=== PATIENT | female | born 1965 | race Caucasian/White ===

== ENCOUNTER → 2016-09-05 | Outpatient (CLI) | payer OTHER ==
[~2016-09-05] MED LIST: CALC-823 PO; MULT-974 PO; OMG1KC PO
[2016-09-05 08:15] LABS: BASOPHILS % (AUTO) 0 % (0-10); EOSINOPHILS # (AUTO) 0.2 10^3/uL (0.0-0.3); EOSINOPHILS % (AUTO) 3 % (0-10); LYMPHOCYTES # (AUTO) 1.9 X 10^3 (1.0-4.0); LYMPHOCYTES % (AUTO) 31 % (12-44); MEAN CORPUSCULAR HEMOGLOBIN 29 PG (25-34); MEAN CORPUSCULAR HGB CONC 33 G/DL (32-36); MEAN CORPUSCULAR VOLUME 89 FL (80-99); MEAN PLATELET VOLUME 9.7 FL (7.4-10.4); MONOCYTES # (AUTO) 0.4 X 10^3 (0.0-1.0); MONOCYTES % (AUTO) 7 % (0-12); NEUTROPHILS # (AUTO) 3.5 X 10^3 (1.8-7.8); NEUTROPHILS % (AUTO) 58 % (42-75); PLATELET COUNT 277 10^3/uL (130-400); RED BLOOD COUNT 4.34 10^6/uL (4.35-5.85); RED CELL DISTRIBUTION WIDTH 13.2 % (10.0-14.5)
[2016-09-05 08:38] LABS: ALANINE AMINOTRANSFERASE 38 U/L (0-55); ALBUMIN 4.3 G/DL (3.2-4.5); ANION GAP 10 MMOL/L (5-14); ASPARTATE AMINO TRANSFERASE 28 U/L (5-34); BILIRUBIN,TOTAL 0.6 MG/DL (0.1-1.0); BLOOD UREA NITROGEN 15 MG/DL (7-18); BUN/CREATININE RATIO 18; CALCIUM 9.2 MG/DL (8.5-10.1); CARBON DIOXIDE 24 MMOL/L (21-32); CHLORIDE 105 MMOL/L (98-107); CHOLESTEROL 250 MG/DL (< 200); CREATININE SERUM 0.82 MG/DL (0.60-1.30); DIRECT LDL 183 MG/DL (1-129); GFR ESTIMATED > 60; GLUCOSE 95 MG/DL (70-105); POTASSIUM 4.5 MMOL/L (3.6-5.0); SODIUM 139 MMOL/L (135-145); TOTAL PROTEIN 6.7 G/DL (6.4-8.2); TRIGLYCERIDES 160 MG/DL (<150); VLDL CHOLESTEROL 32 MG/DL (5-40)
[2016-09-05 08:58] LABS: THYROID STIMULATING HORMONE 1.26 UIU/ML (0.35-4.94)
== END ==
LOC: LAB 07:58
PROVIDERS: ATTEND Obstetrics & Gynecology
DX: Z00.00 Encounter for general adult medical examination without abnormal findings (principal); Z13.220 Encounter for screening for lipoid disorders; Z13.1 Encounter for screening for diabetes mellitus
CPT/HCPCS: 36415; 80053; 80061; 83036; 84443; 85025

== ENCOUNTER → 2017-02-10 | Outpatient (CLI) | payer OTHER ==
--- NOTE | 2017-02-12 10:06 | Diagnostic Imaging Report ---
Bilateral screening mammogram 2D views with tomosynthesis The current study was also evaluated with a Computer Aided Detection (CAD) system. Indication: Screening. No current complaints stated on the questionnaire. COMPARISON: 09/06/15 and other prior exams. FINDINGS: The breasts are composed of heterogeneously dense parenchyma which may decrease mammographic sensitivity. Benign-appearing calcifications seen. Allowing for technique and positional differences, no suspicious change is seen. IMPRESSION: No significant change. ACR BI-RADS Category 2: Benign findings. Result letter will be mailed to the patient. Note: At least 10% of breast cancer is not imaged by mammography. Dictated by: Dictated on workstation # [id number]
== END ==
LOC: RAD 15:35
PROVIDERS: ATTEND Obstetrics & Gynecology
DX: Z12.31 Encounter for screening mammogram for malignant neoplasm of breast (principal)
CPT/HCPCS: 77067

== ENCOUNTER → 2017-08-12 | Outpatient (CLI) | payer OTHER | LOC: CARD 07:22 | PROVIDERS: ATTEND Internal Medicine Cardiovascular Disease | DX: E78.5 Hyperlipidemia, unspecified (principal); E66.9 Obesity, unspecified; Z82.3 Family history of stroke; Z82.49 Family history of ischemic heart disease and other diseases of the circulatory system | CPT/HCPCS: 93017; 93306 ==

== ENCOUNTER → 2017-09-23 | Outpatient (CLI) | payer OTHER ==
[2017-09-23 08:34] LABS: BASOPHILS % (AUTO) 0 % (0-10); EOSINOPHILS # (AUTO) 0.1 10^3/uL (0.0-0.3); EOSINOPHILS % (AUTO) 3 % (0-10); HEMATOCRIT 39 % (35-52); HEMOGLOBIN 13.2 G/DL (11.5-16.0); LYMPHOCYTES # (AUTO) 1.9 X 10^3 (1.0-4.0); LYMPHOCYTES % (AUTO) 36 % (12-44); MEAN CORPUSCULAR HEMOGLOBIN 30 PG (25-34); MEAN CORPUSCULAR HGB CONC 34 G/DL (32-36); MEAN CORPUSCULAR VOLUME 89 FL (80-99); MEAN PLATELET VOLUME 9.9 FL (7.4-10.4); MONOCYTES # (AUTO) 0.4 X 10^3 (0.0-1.0); MONOCYTES % (AUTO) 7 % (0-12); NEUTROPHILS % (AUTO) 55 % (42-75); PLATELET COUNT 248 10^3/uL (130-400); RED BLOOD COUNT 4.41 10^6/uL (4.35-5.85); RED CELL DISTRIBUTION WIDTH 12.8 % (10.0-14.5); WHITE BLOOD COUNT 5.5 10^3/uL (4.3-11.0)
[2017-09-23 08:48] LABS: ALANINE AMINOTRANSFERASE 33 U/L (0-55); ALBUMIN 4.3 GM/DL (3.2-4.5); ALKALINE PHOSPHATASE 114 U/L (40-136); BILIRUBIN,TOTAL 0.8 MG/DL (0.1-1.0); BUN/CREATININE RATIO 27; CALCIUM 9.4 MG/DL (8.5-10.1); CARBON DIOXIDE 24 MMOL/L (21-32); CHLORIDE 105 MMOL/L (98-107); CHOLESTEROL 256 MG/DL (< 200); CREATININE SERUM 0.81 MG/DL (0.60-1.30); GFR ESTIMATED > 60; GLUCOSE 101 MG/DL (70-105); HDL CHOLESTEROL 55 MG/DL (40-60); POTASSIUM 4.1 MMOL/L (3.6-5.0); SODIUM 141 MMOL/L (135-145); TOTAL PROTEIN 7.2 GM/DL (6.4-8.2); TRIGLYCERIDES 131 MG/DL (<150); VLDL CHOLESTEROL 26 MG/DL (5-40)
== END ==
LOC: LAB 08:09
PROVIDERS: ATTEND Obstetrics & Gynecology
DX: Z00.00 Encounter for general adult medical examination without abnormal findings (principal); Z13.1 Encounter for screening for diabetes mellitus; Z13.220 Encounter for screening for lipoid disorders
CPT/HCPCS: 36415; 80053; 80061; 83036; 84443; 85025

== ENCOUNTER → 2018-02-17 | Outpatient (CLI) | payer OTHER ==
--- NOTE | 2018-02-17 11:32 | Diagnostic Imaging Report ---
Indication: Routine screening. Comparison is made to prior exam from 02/10/2017 and 09/06/2015. 2-D and 3-D bilateral screening mammography was performed with CAD. Scattered fibroglandular densities are identified bilaterally. The parenchymal pattern appears stable. No dominant mass or malignant-appearing microcalcifications are seen. The axillae are unremarkable. Impression: BI-RADS category 1 No mammographic features suspicious for malignancy are identified. ACR BI-RADS Category 1: Negative. Result letter will be mailed to the patient. Note: At least 10% of breast cancer is not imaged by mammography. Dictated by: Dictated on workstation # [id number]
== END ==
LOC: SDC 08:56
PROVIDERS: ATTEND Obstetrics & Gynecology
DX: Z12.31 Encounter for screening mammogram for malignant neoplasm of breast (principal)
CPT/HCPCS: 77067

== ENCOUNTER → 2018-11-18 | Outpatient (CLI) | payer OTHER ==
[2018-11-18 07:45] LABS: BASOPHILS % (AUTO) 0 % (0-10); EOSINOPHILS # (AUTO) 0.2 10^3/uL (0.0-0.3); EOSINOPHILS % (AUTO) 3 % (0-10); HEMATOCRIT 37 % (35-52); HEMOGLOBIN 12.4 G/DL (11.5-16.0); LYMPHOCYTES # (AUTO) 1.9 X 10^3 (1.0-4.0); LYMPHOCYTES % (AUTO) 37 % (12-44); MEAN CORPUSCULAR HEMOGLOBIN 30 PG (25-34); MEAN CORPUSCULAR HGB CONC 33 G/DL (32-36); MEAN CORPUSCULAR VOLUME 89 FL (80-99); MEAN PLATELET VOLUME 9.9 FL (7.4-10.4); MONOCYTES # (AUTO) 0.4 X 10^3 (0.0-1.0); MONOCYTES % (AUTO) 8 % (0-12); NEUTROPHILS # (AUTO) 2.8 X 10^3 (1.8-7.8); NEUTROPHILS % (AUTO) 53 % (42-75); PLATELET COUNT 223 10^3/uL (130-400); RED CELL DISTRIBUTION WIDTH 12.6 % (10.0-14.5); WHITE BLOOD COUNT 5.2 10^3/uL (4.3-11.0)
[2018-11-18 08:03] LABS: ALANINE AMINOTRANSFERASE 25 U/L (0-55); ALBUMIN 4.4 GM/DL (3.2-4.5); ALKALINE PHOSPHATASE 100 U/L (40-136); BILIRUBIN,TOTAL 0.6 MG/DL (0.1-1.0); BUN/CREATININE RATIO 30; CALCIUM 9.6 MG/DL (8.5-10.1); CARBON DIOXIDE 23 MMOL/L (21-32); CHLORIDE 107 MMOL/L (98-107); CHOLESTEROL 237 MG/DL (< 200); CREATININE SERUM 0.79 MG/DL (0.60-1.30); GFR ESTIMATED > 60; GLUCOSE 98 MG/DL (70-105); HDL CHOLESTEROL 50 MG/DL (40-60); POTASSIUM 4.1 MMOL/L (3.6-5.0); SODIUM 141 MMOL/L (135-145); TOTAL PROTEIN 6.9 GM/DL (6.4-8.2); TRIGLYCERIDES 124 MG/DL (<150); VLDL CHOLESTEROL 25 MG/DL (5-40)
== END ==
LOC: LAB 07:32
PROVIDERS: ATTEND Obstetrics & Gynecology
DX: Z00.00 Encounter for general adult medical examination without abnormal findings (principal); Z13.220 Encounter for screening for lipoid disorders; Z13.1 Encounter for screening for diabetes mellitus
CPT/HCPCS: 36415; 80053; 80061; 83036; 84443; 85025

== ENCOUNTER → 2019-02-22 | Outpatient (CLI) | payer OTHER ==
--- NOTE | 2019-02-23 18:26 | Diagnostic Imaging Report ---
EXAMINATION: Digital mammogram bilateral screening. The current study was also evaluated with a Computer Aided Detection (CAD) system. 3-D tomosynthesis was also performed and reviewed. INDICATION: Screening. This study was compared to the prior exams of 02/17/2018, 02/10/2017, and 09/06/2015. At this time, there are no current complaints. FINDINGS: The fibroglandular tissue in both breasts is heterogeneously dense. This does limit the sensitivity of this exam. Overall, there does not appear to have been any significant change when compared to the prior study. No primary or secondary sign of malignancy is noted. 3D tomographic images fail to show any sign of malignancy. IMPRESSION: There is no radiographic evidence for malignancy. ACR BI-RADS Category 1: Negative. Result letter will be mailed to the patient. Note: At least 10% of breast cancer is not imaged by mammography. Dictated by: Dictated on workstation # [id number]
== END ==
LOC: RAD 14:45
PROVIDERS: ATTEND Obstetrics & Gynecology
DX: Z12.31 Encounter for screening mammogram for malignant neoplasm of breast (principal)
CPT/HCPCS: 77067

== ENCOUNTER → 2019-02-22 | Outpatient (CLI) | payer OTHER ==
--- NOTE | 2019-02-23 10:27 | Diagnostic Imaging Report ---
CT low-dose lung cancer screening. Indication: [id number] smoking history. Routine images of the thorax were obtained using the CT low-dose lung cancer lobe screening protocol. There is a 1.1 cm parenchymal opacity in the right upper lobe (image 85 of 183). This finding is also seen on the coronal (image 34 of 124) and sagittal reconstructed images (image 74 of 302). This lesion has a flat appearance. In reviewing the previous CT chest exam of 08/27/2016, this finding was present and does not seem to have changed significantly. Consequently I do suspect it is a benign process. There is no other parenchymal lung mass identified other than a calcified granuloma in the left apex. This finding was also present in the prior exam. There is no sign of failure, pneumonia or pleural effusion to indicate an acute abnormality. The heart size is at the upper limits of normal. There are coronary artery calcifications evident. Aorta is not abnormally dilated. There is no obvious mediastinal or hilar adenopathy. Thyroid gland is generally unremarkable. There is no breast mass noted. The upper abdomen where visualized is unremarkable for an acute abnormality. The bone window shows no sign of a fracture or destructive lesion. Impression: 1. The flat parenchymal density in the right midlung anteriorly is seen on the previous exam, appears similar to the prior study and consequently is most likely benign. A followup low dose lung cancer screening exam in one year would be recommended for continued evaluation. 2. There is no acute cardiopulmonary abnormality noted. 3. There is coronary artery disease. Lung-Rads Category: 2 Dictated by: Dictated on workstation # [id number]
== END ==
LOC: RAD 14:48
PROVIDERS: ATTEND Family Medicine
DX: Z12.2 Encounter for screening for malignant neoplasm of respiratory organs (principal); I25.10 Atherosclerotic heart disease of native coronary artery without angina pectoris; J98.4 Other disorders of lung; Z87.891 Personal history of nicotine dependence

== ENCOUNTER → 2019-05-26 | Outpatient (CLI) | payer OTHER ==
[2019-05-26 07:45] LABS: ALBUMIN 4.3 GM/DL (3.2-4.5); BILIRUBIN,DIRECT 0.2 MG/DL (0.0-0.3); BILIRUBIN,INDIRECT 0.4 MG/DL; BILIRUBIN,TOTAL 0.6 MG/DL (0.1-1.0); TOTAL PROTEIN 7.1 GM/DL (6.4-8.2)
== END ==
LOC: LAB 07:09
PROVIDERS: ATTEND Physician Assistant
DX: E78.5 Hyperlipidemia, unspecified (principal); E66.9 Obesity, unspecified; Z87.891 Personal history of nicotine dependence; Z82.49 Family history of ischemic heart disease and other diseases of the circulatory system; Z80.9 Family history of malignant neoplasm, unspecified
CPT/HCPCS: 36415; 80061; 80076

== ENCOUNTER → 2019-12-29 | Outpatient (CLI) | payer OTHER ==
[2019-12-29 07:26] LABS: BASOPHILS % (AUTO) 0 % (0-10); EOSINOPHILS # (AUTO) 0.2 10^3/uL (0.0-0.3); EOSINOPHILS % (AUTO) 3 % (0-10); HEMATOCRIT 38 % (35-52); HEMOGLOBIN 12.5 G/DL (11.5-16.0); LYMPHOCYTES # (AUTO) 1.9 X 10^3 (1.0-4.0); LYMPHOCYTES % (AUTO) 34 % (12-44); MEAN CORPUSCULAR HEMOGLOBIN 29 PG (25-34); MEAN CORPUSCULAR HGB CONC 33 G/DL (32-36); MEAN CORPUSCULAR VOLUME 89 FL (80-99); MEAN PLATELET VOLUME 9.5 FL (7.4-10.4); MONOCYTES # (AUTO) 0.4 X 10^3 (0.0-1.0); MONOCYTES % (AUTO) 7 % (0-12); NEUTROPHILS # (AUTO) 3.1 X 10^3 (1.8-7.8); NEUTROPHILS % (AUTO) 56 % (42-75); PLATELET COUNT 216 10^3/uL (130-400); WHITE BLOOD COUNT 5.6 10^3/uL (4.3-11.0)
[2019-12-29 07:31] LABS: ALBUMIN 4.4 GM/DL (3.2-4.5)
[2019-12-29 07:33] LABS: CALCIUM 9.7 MG/DL (8.5-10.1)
[2019-12-29 07:34] LABS: TOTAL PROTEIN 7.2 GM/DL (6.4-8.2)
[2019-12-29 07:36] LABS: BILIRUBIN,TOTAL 0.7 MG/DL (0.1-1.0)
[2019-12-29 07:38] LABS: CREATININE SERUM 0.97 MG/DL (0.60-1.30)
== END ==
LOC: LAB 07:10
PROVIDERS: ATTEND Obstetrics & Gynecology
DX: Z13.1 Encounter for screening for diabetes mellitus (principal); Z13.220 Encounter for screening for lipoid disorders
CPT/HCPCS: 36415; 80053; 80061; 83036; 84443; 85025

== ENCOUNTER → 2020-03-01 | Outpatient (CLI) | payer OTHER ==
--- NOTE | 2020-03-01 13:43 | Diagnostic Imaging Report ---
CT Lung Screening INDICATION: 35 pack-year smoking history. TECHNIQUE: Noncontrast, low-dose CT imaging performed according to the lung cancer screening protocol. Auto Exposure Controls were utilize during the CT exam to meet ALARA standards for radiation dose reduction. COMPARISON: 02/22/2019. FINDINGS: The previous CT low-dose lung cancer screening exam of 02/22/2019 noted a 1.1 cm parenchymal opacity in the right upper lobe. That finding is again evident on this study and does not appear to have changed significantly in size or appearance. The densely calcified granuloma in the left upper lung noted previously is also again evident and no different. There is no other parenchymal lung mass noted. There are mild chronic pulmonary changes evident. There is no sign of failure, pneumonia, or pleural effusion to indicate an acute abnormality. The heart size is within normal limits. Coronary artery calcifications are evident. The aorta is not abnormally dilated. There is no mediastinal or hilar adenopathy. The thyroid gland where visualized is unremarkable. There is no obvious breast mass. The sections through the upper abdomen fail to show any sign of an acute abnormality. The gallbladder is surgically absent. The bone windows are unremarkable for a fracture or for a destructive lesion. IMPRESSION: 1. The parenchymal opacity in the right upper lobe seen previously is again evident and appears stable. Most likely, this is a benign process. A follow-up low-dose lung cancer screening exam in one year will be recommended for continued evaluation. 2. There is no other parenchymal lung mass noted. 3. There is no sign of an acute cardiopulmonary abnormality. 4. There is coronary artery disease. LUNG-RADS CATEGORY: 2 MODIFIER: OTHER SIGNIFICANT FINDINGS: Dictated by: Dictated on workstation # [id number]
== END ==
LOC: RAD 07:18
PROVIDERS: ATTEND Family Medicine
DX: Z12.11 Encounter for screening for malignant neoplasm of colon (principal); R91.8 Other nonspecific abnormal finding of lung field; Z87.891 Personal history of nicotine dependence

== ENCOUNTER → 2020-03-01 | Outpatient (CLI) | payer OTHER ==
--- NOTE | 2020-03-01 19:27 | Diagnostic Imaging Report ---
INDICATION: Screening. At this time there are no current complaints. EXAMINATION: Bilateral digital screening mammogram with CAD. 3D tomographic images were obtained and reviewed. The current study was also evaluated with a Computer Aided Detection (CAD) system. COMPARISON: This study was compared to the prior exams of 02/22/2019, 02/17/2018 and 02/10/2017. FINDINGS: The fibroglandular tissue in both breasts is heterogeneously dense. This does limit the sensitivity of this exam. Overall, there does not appear to have been any significant change when compared to the prior study. No primary or secondary sign of malignancy is noted. IMPRESSION: There is no radiographic evidence for malignancy. ACR BI-RADS Category 1: Negative. Result letter will be mailed to the patient. Note: At least 10% of breast cancer is not imaged by mammography. Dictated by: Dictated on workstation # [id number]
== END ==
LOC: RAD 07:17
PROVIDERS: ATTEND Obstetrics & Gynecology
DX: Z12.31 Encounter for screening mammogram for malignant neoplasm of breast (principal)
CPT/HCPCS: 77063; 77067

== ENCOUNTER → 2021-03-13 | Outpatient (CLI) | payer OTHER ==
--- NOTE | 2021-03-13 13:36 | Diagnostic Imaging Report ---
INDICATION: Routine screening. COMPARISON: 03/01/2020 and 02/22/2019. TECHNIQUE: 2D and 3D bilateral screening mammography was performed with CAD. FINDINGS: Scattered fibroglandular densities are identified bilaterally. The intraparenchymal lymph node in the outer right breast is stable. There is an intraparenchymal lymph node in the outer left breast as well at mid depth. No spiculated mass or malignant-appearing microcalcifications are seen. The axillae are unremarkable. IMPRESSION: No mammographic features suspicious for malignancy are identified. ACR BI-RADS Category 2: Benign findings. Result letter will be mailed to the patient. Note: At least 10% of breast cancer is not imaged by mammography. Dictated by: Dictated on workstation # [id number]
== END ==
LOC: RAD 11:15
PROVIDERS: ATTEND Obstetrics & Gynecology
DX: Z12.31 Encounter for screening mammogram for malignant neoplasm of breast (principal)
CPT/HCPCS: 77063; 77067

== ENCOUNTER → 2021-03-21 | Outpatient (CLI) | payer OTHER ==
[2021-03-21 07:52] LABS: ALBUMIN 4.4 GM/DL (3.2-4.5); BILIRUBIN,TOTAL 0.7 MG/DL (0.1-1.0); CALCIUM 9.9 MG/DL (8.5-10.1); CREATININE SERUM 0.83 MG/DL (0.60-1.30); POTASSIUM 4.1 MMOL/L (3.6-5.0); TOTAL PROTEIN 7.4 GM/DL (6.4-8.2)
[2021-03-21 08:14] LABS: FREE T4 (FREE THYROXINE) 0.96 NG/DL (0.70-1.48)
== END ==
LOC: LAB 07:08
PROVIDERS: ATTEND Obstetrics & Gynecology
DX: Z00.00 Encounter for general adult medical examination without abnormal findings (principal); Z13.220 Encounter for screening for lipoid disorders; Z13.1 Encounter for screening for diabetes mellitus
CPT/HCPCS: 36415; 80053; 80061; 83036; 84439; 84443; 85025

== ENCOUNTER → 2021-03-21 | Outpatient (CLI) | payer OTHER | LOC: LAB 07:08 | PROVIDERS: ATTEND Obstetrics & Gynecology | DX: Z53.9 Procedure and treatment not carried out, unspecified reason (principal) ==

== ENCOUNTER → 2021-03-26 | Outpatient (CLI) | payer OTHER ==
--- NOTE | 2021-03-26 09:36 | Diagnostic Imaging Report ---
CT Lung Screening INDICATION:35 pack year smoking history, cessation 8 years ago, for annual low-dose CT screening TECHNIQUE: Noncontrast, low-dose CT imaging performed according to the lung cancer screening protocol. Auto Exposure Controls were utilize during the CT exam to meet ALARA standards for radiation dose reduction. COMPARISON:03/01/2020 FINDINGS:A densely calcified chronic benign granuloma in the left upper lobe stable. A sub-solid nodule in the right middle lobe is 10 mm, unchanged from the recent exam as well as stable from the study of 2019. No new lung mass. No evidence for pneumonia. No thoracic adenopathy. No chest effusion. The aorta is nonaneurysmal. There is no acute or suspicious chest wall lesion. The visualized upper abdomen nonacute. IMPRESSION:Densely calcified benign chronic granuloma left upper lobe, stable 1 cm sub-solid nodule right middle lobe unchanged for 2 years time, strongly suggestive of benignity. No acute abnormality or interval change. Continued low-dose CT screening followup in one year's time recommended. LUNG-RADS CATEGORY:Category 2 MODIFIER:None OTHER SIGNIFICANT FINDINGS:None Dictated by: Dictated on workstation # [id number]
== END ==
LOC: RAD 07:45
PROVIDERS: ATTEND Family Medicine
DX: Z12.2 Encounter for screening for malignant neoplasm of respiratory organs (principal); R91.1 Solitary pulmonary nodule; J84.10 Pulmonary fibrosis, unspecified; Z87.891 Personal history of nicotine dependence
CPT/HCPCS: 71271

== ENCOUNTER → 2022-03-17 | Outpatient (CLI) | payer OTHER ==
--- NOTE | 2022-03-17 10:40 | Diagnostic Imaging Report ---
INDICATION: Routine screening. COMPARISON: 03/13/2021 and 03/01/2020. TECHNIQUE: 2D and 3D bilateral screening mammography was performed with CAD. FINDINGS: Scattered fibroglandular densities are identified bilaterally. The intraparenchymal lymph nodes in the bilateral breasts appear stable. No spiculated mass or malignant appearing microcalcifications are seen. The axillae are unremarkable. IMPRESSION: No mammographic features suspicious for malignancy are identified. ACR BI-RADS Category 2: Benign findings. Result letter will be mailed to the patient. Note: At least 10% of breast cancer is not imaged by mammography. Dictated by: Dictated on workstation # [id number]
== END ==
LOC: RAD 15:00
PROVIDERS: ATTEND Obstetrics & Gynecology
DX: Z12.31 Encounter for screening mammogram for malignant neoplasm of breast (principal)
CPT/HCPCS: 77063; 77067

== ENCOUNTER → 2022-03-31 | Outpatient (CLI) | payer OTHER ==
[2022-03-31 07:35] LABS: BASOPHILS % (AUTO) 0 % (0-10); EOSINOPHILS # (AUTO) 0.3 10^3/uL (0.0-0.3); EOSINOPHILS % (AUTO) 5 % (0-10); HEMATOCRIT 38 % (35-52); HEMOGLOBIN 12.6 g/dL (11.5-16.0); LYMPHOCYTES # (AUTO) 2.3 10^3/uL (1.0-4.0); LYMPHOCYTES % (AUTO) 37 % (12-44); MEAN CORPUSCULAR HEMOGLOBIN 29 pg (25-34); MEAN CORPUSCULAR HGB CONC 33 g/dL (32-36); MEAN CORPUSCULAR VOLUME 89 fL (80-99); MEAN PLATELET VOLUME 9.7 fL (9.0-12.2); MONOCYTES # (AUTO) 0.4 10^3/uL (0.0-1.0); MONOCYTES % (AUTO) 7 % (0-12); NEUTROPHILS % (AUTO) 50 % (42-75); PLATELET COUNT 222 10^3/uL (130-400)
[2022-03-31 07:58] LABS: ALBUMIN 4.2 GM/DL (3.2-4.5); POTASSIUM 4.2 MMOL/L (3.6-5.0)
[2022-03-31 07:59] LABS: CALCIUM 9.4 MG/DL (8.5-10.1)
[2022-03-31 08:03] LABS: BILIRUBIN,TOTAL 0.7 MG/DL (0.1-1.0)
[2022-03-31 08:04] LABS: CREATININE SERUM 0.85 MG/DL (0.60-1.30)
== END ==
LOC: LAB 07:16
PROVIDERS: ATTEND Obstetrics & Gynecology
DX: Z00.00 Encounter for general adult medical examination without abnormal findings (principal); Z13.220 Encounter for screening for lipoid disorders; Z13.1 Encounter for screening for diabetes mellitus; Z13.29 Encounter for screening for other suspected endocrine disorder
CPT/HCPCS: 36415; 80053; 80061; 83036; 84443; 85025

== ENCOUNTER → 2022-04-09 | Outpatient (CLI) | payer OTHER ==
--- NOTE | 2022-04-09 08:32 | Diagnostic Imaging Report ---
CT Lung Screening INDICATION:CT screening for lung cancer in patient with 35 pack-year smoking history TECHNIQUE: Noncontrast, low-dose CT imaging performed according to the lung cancer screening protocol. Auto Exposure Controls were utilize during the CT exam to meet ALARA standards for radiation dose reduction. COMPARISON:03/26/2021 FINDINGS:There is a stable densely calcified 0.9 x 0.7 cm left upper lobe nodule consistent with granuloma. Minimal subpleural nodules also seen at the same level in the left upper lobe posteriorly. Sub-solid 1 cm nodule in the right middle lobe has remained stable. There is no evidence of new pulmonary mass or infiltrate. Coronary artery calcifications are noted. There is no significant pleural or pericardial fluid and no pathologically enlarged adenopathy is seen IMPRESSION: Stable nodules in both lungs have benign appearances. There is no new abnormality or adverse change. LUNG-RADS CATEGORY:2 MODIFIER:None OTHER SIGNIFICANT FINDINGS:Coronary artery disease Dictated by: Dictated on workstation # [id number]
== END ==
LOC: RAD 07:45
PROVIDERS: ATTEND Family Medicine
DX: Z12.2 Encounter for screening for malignant neoplasm of respiratory organs (principal); R91.8 Other nonspecific abnormal finding of lung field; Z87.891 Personal history of nicotine dependence
CPT/HCPCS: 71271

== ENCOUNTER → 2023-05-13 | Outpatient (CLI) | payer OTHER ==
--- NOTE | 2023-05-13 10:52 | Diagnostic Imaging Report ---
EXAMINATION: CT chest screening without. TECHNIQUE: Low-dose CT of the chest was performed without contrast per the lung cancer screening protocol. INDICATION: 35 pack-year history of smoking. Quit smoking 11 years ago. COMPARISON: None available. FINDINGS: Pulmonary findings: No abnormality in the trachea. Mild centrilobular emphysema is unchanged. Stable calcified left lower lobe pulmonary granuloma. No pneumonia or edema. The triangular nodule in the right middle lobe along the minor fissure remains unchanged at approximately 10 mm in maximal diameter. No new pulmonary nodules. Extrapulmonary findings: No axillary or mediastinal lymphadenopathy. No pericardial or pleural effusion. Normal heart size. Moderate coronary artery calcifications. Normal caliber thoracic aorta. Limited views of the upper abdomen are unremarkable. IMPRESSION: No change to indicate clinically active lung cancer. LUNG-RADS CATEGORY: 2 - Benign appearance or behavior RECOMMENDATIONS: Continued annual screening with low-dose CT in 12 months. Dictated by: Dictated on workstation # [id number]
== END ==
LOC: RAD 07:04
PROVIDERS: ATTEND Family Medicine
DX: Z12.2 Encounter for screening for malignant neoplasm of respiratory organs (principal); Z87.891 Personal history of nicotine dependence
CPT/HCPCS: 71271

== ENCOUNTER 2023-07-08 05:34 | Outpatient (CLI) | payer OTHER ==
[~2023-07-08] VITALS: Ht 160 cm; Wt 85.7 kg
[2023-07-08] MEDS ORDERED: OXYB5TAB14 PO (11:50)
== END 2023-07-08 11:59 | disposition home or self-care (01) ==
LOC: PREOP 05:34
PROVIDERS: ATTEND Internal Medicine
DX: Z01.818 Encounter for other preprocedural examination (principal)